=== PATIENT | female | born 1945 | race Caucasian/White ===

== ENCOUNTER 2020-03-21 14:00 | Inpatient (IN) | payer MEDICARE, OTHER ==
[2020-03-21 13:18] LABS: BASOPHILS % (AUTO) 0.4 % (0.0-5.0); EOSINOPHILS % (AUTO) 1.7 % (0.0-8.0); HEMATOCRIT 35.7 % (36-48); LYMPHOCYTES % (AUTO) 30.5 % (21.0-51.0); MEAN CORPUSCULAR HEMOGLOBIN 31.4 pg (27.0-33.0); MEAN CORPUSCULAR HGB CONC 31.9 g/dL (32.0-36.0); MEAN CORPUSCULAR VOLUME 98.3 fL (79-99); MONOCYTES % (AUTO) 7.6 % (3.0-13.0); NEUTROPHILS % (AUTO) 59.4 % (40.0-77.0); PLATELET COUNT (AUTO) 235 K/uL (130-400); RED BLOOD CELL COUNT(AUTO) 3.63 MIL/uL (4.00-5.50); RED CELL DISTRIBUTION WIDTH 11.8 % (11.0-15.5); WHITE BLOOD COUNT (AUTO) 5.2 K/uL (4.8-10.8)
[2020-03-21 13:26] LABS: CREATININE 1.1 mg/dL (0.5-1.5); POTASSIUM 4.3 mmol/L (3.5-5.1)
[2020-03-21 14:04] LABS: INR 0.91 (0.85-1.15); PROTHROMBIN TIME 9.8 SEC (9.6-11.6)
[2020-03-21 14:05] LABS: PARTIAL THROMBOPLASTIN TIME 24.1 SEC (26.3-35.5)
[2020-03-25 12:02] VITALS: BP_SYST 157; BP_SYST 184; BP_DIAS 69; BP_DIAS 76
[2020-03-25] MEDS: CEFAZOLIN SODIUM 1 GM VIAL IVP SCH (12:30)
[2020-03-25] MEDS ORDERED: CYAN250010 PO (12:52)
[2020-03-25] MEDS ORDERED: DORZ10DR19 OD (12:52)
[2020-03-25] MEDS ORDERED: DICL35CA3 PO (12:52)
[2020-03-25] MEDS ORDERED: OLME40TA8 PO (12:52)
[2020-03-25] MEDS ORDERED: PRAV20TA4 PO (12:52)
[2020-03-25] MEDS ORDERED: BRIM5DRO OD (12:52)
[2020-03-25] MEDS ORDERED: DILT120T PO (12:52)
[2020-03-25] MEDS ORDERED: DULO30CA2 PO (12:52)
[2020-03-25] MEDS ORDERED: OMEP20CA12 PO (12:52)
[2020-03-25] MEDS ORDERED: ANAS1TAB49 PO (12:52)
[2020-03-25] MEDS ORDERED: BACL5TAB PO (12:52)
[2020-03-25] MEDS ORDERED: AEC81 PO (12:52)
[2020-03-25] MEDS ORDERED: VITAD50000 PO (12:52)
[2020-03-26] VITALS (23 sets, daily range): BP systolic 114–129; BP diastolic 46–71
[2020-03-26] MEDS ORDERED: LACTATED RINGERS 1000ML 1,000 ML IV ONE (09:09)
[2020-03-26] MEDS ORDERED: VANCOMYCIN HCL 1 GM VIAL ONE (10:09)
[2020-03-26] MEDS ORDERED: CEFAZOLIN SODIUM 1 GM VIAL ONE (10:09)
[2020-03-26] MEDS ORDERED: BUPIVACAINE/PF 0.25% 10ML VIAL IJ ONE (10:09)
[2020-03-26] MEDS ORDERED: DEXAMETHASONE SOD PHOSPHATE 10MG/ML 1ML VIAL ONE ×2 (10:27→11:56)
[2020-03-26] MEDS ORDERED: SUCCINYLCHOLINE 200MG/10ML SYR ONE (10:27)
[2020-03-26] MEDS ORDERED: LIDOCAINE PF 2% 5ML ABBOJECT ONE (10:27)
[2020-03-26] MEDS ORDERED: NEOSTIGMINE 5MG/5ML SYR IV ONE (10:28)
[2020-03-26] MEDS ORDERED: PROPOFOL 10 MG/ML 20ML VIAL IV ONE (10:28)
[2020-03-26] MEDS ORDERED: GLYCOPYRROLATE 1 MG/5 ML SYRINGE ONE (10:28)
[2020-03-26] MEDS ORDERED: FENTANYL CITRATE PF 50 MCG/1 ML 2ML VIAL ONE (10:28)
[2020-03-26] MEDS ORDERED: ROCURONIUM 10MG/1ML SYR 10 MG/ML ML ONE (10:28)
[2020-03-26] MEDS ORDERED: MIDAZOLAM HCL 1 MG/ML 2ML VIAL ONE (10:28)
[2020-03-26] MEDS: CEFAZOLIN SODIUM 1 GM VIAL IVP SCH ×3 (10:45→18:03)
[2020-03-26] MEDS ORDERED: TRANEXAMIC ACID 1000MG/10ML ONE (10:51)
[2020-03-26] MEDS ORDERED: EPHEDRINE SULFATE 50 MG/ML AMPULE ONE (10:54)
[2020-03-26] MEDS ORDERED: TOBRAMYCIN SULFATE 40MG/1ML VIAL ONE (11:02)
[2020-03-26] MEDS ORDERED: THROMBIN-JMI 20000 UNIT KIT TP ONE (11:03)
[2020-03-26] MEDS ORDERED: MEPERIDINE-PF 25 MG/ML SYG ONE ×2 (13:16→13:49)
[2020-03-26] MEDS: SODIUM CHLORIDE 0.9% 1000ML 1,000 ML IV SCH (15:30)
[2020-03-26] MEDS ORDERED: CEFAZOLIN SODIUM 1 GM VIAL IVP SCH (15:30)
[2020-03-26] MEDS ORDERED: ACETAMINOPHEN-CODEINE 300/30MG TAB PO PRN ×2 (15:30)
[2020-03-26] MEDS ORDERED: MEPERIDINE-PF 75 MG/ML SYG IM PRN (15:30)
[2020-03-26] MEDS ORDERED: NALOXONE HCL 0.4 MG/1 ML ML IVP PRN (15:30)
[2020-03-26] MEDS: ASPIRIN 81 MG EC TAB PO SCH (20:24)
[2020-03-26] MEDS: DULOXETINE HCL 30 MG CAP PO SCH (20:24)
[2020-03-26] MEDS: BACLOFEN 10 MG TABLET PO SCH (20:24)
[2020-03-26] MEDS: SIMVASTATIN 10 MG TABLET PO SCH (20:24)
[2020-03-26] MEDS: ANASTROZOLE 1MG PO SCH (20:53)
[2020-03-26] MEDS: DORZOLAMIDE HCL 2% 10ML DROPS OD SCH (20:53)
[2020-03-26] MEDS: (Brimonidine Tartrate/Timolol (Combigan Eye Drops) 1 DROP) OD SCH (20:53)
[2020-03-26] MEDS: DICLOFENAC 50 MG PO SCH (20:54)
[2020-03-26] MEDS ORDERED: NON-FORMULARY MEDICATION 1 EACH (Diltiazem HCl 120 MG) PO SCH (21:00)
[2020-03-26] MEDS ORDERED: [UNRECOGNIZED DRUG - OTHER] OD SCH (21:00)
[2020-03-26] MEDS ORDERED: BRIMONIDINE TARTRATE OD SCH (21:00)
[2020-03-26] MEDS ORDERED: DORZOLAMIDE HCL OD SCH (21:00)
[2020-03-26] MEDS ORDERED: [UNRECOGNIZED DRUG - OTHER] PO SCH (21:00)
[2020-03-26] MEDS ORDERED: TIMOLOL OD SCH (21:00)
[2020-03-26] MEDS ORDERED: ANASTROZOLE 1 MG PO SCH (21:00)
[2020-03-26] MEDS ORDERED: NON-FORMULARY MEDICATION 1 EACH (Pravastatin Sodium 20 MG) PO SCH (21:00)
[2020-03-26] MEDS ORDERED: NON-FORMULARY MEDICATION 1 EACH (Baclofen 5 MG) PO SCH (21:00)
[2020-03-27] MEDS: CEFAZOLIN SODIUM 1 GM VIAL IVP SCH ×3 (03:08→19:47)
[2020-03-27 04:00] VITALS: BP 126/69
[2020-03-27 08:00] VITALS: BP 136/70
[2020-03-27] MEDS: (Brimonidine Tartrate/Timolol (Combigan Eye Drops) 1 DROP) OD SCH ×2 (08:48→21:51)
[2020-03-27] MEDS: OLMESARTAN 40MG PO SCH (08:48)
[2020-03-27] MEDS: DILTIAZEM HCL 120 MG CAP.SR.24H PO SCH (08:48)
[2020-03-27] MEDS: DORZOLAMIDE HCL 2% 10ML DROPS OD SCH ×2 (08:48→21:00)
[2020-03-27] MEDS: CYANOCOBALAMIN (VITAMIN B-12) 1,000 MCG TABLET PO SCH (08:49)
[2020-03-27] MEDS: PANTOPRAZOLE SODIUM 40 MG TABLET.DR PO SCH (08:49)
[2020-03-27] MEDS: CHOLECALCIFEROL 2000 UNIT PO SCH (08:51)
[2020-03-27] MEDS: DICLOFENAC 50 MG PO SCH ×3 (08:51→21:51)
[2020-03-27] MEDS ORDERED: OLMESARTAN MEDOXOMIL 40 MG PO SCH (09:00)
[2020-03-27] MEDS ORDERED: NON-FORMULARY MEDICATION 1 EACH (Cyanocobalamin (Vitamin B-12) (Vitamin B12) 2,500 MCG) PO SCH (09:00)
[2020-03-27] MEDS ORDERED: CHOLECALCIFEROL 2000 UNIT PO SCH (09:00)
[2020-03-27] MEDS ORDERED: NON-FORMULARY MEDICATION 1 EACH (Omeprazole 20 MG) PO SCH (09:00)
[2020-03-27 11:53] VITALS: BP 137/76
[2020-03-27] MEDS: SODIUM CHLORIDE 0.9% 1000ML 1,000 ML IV SCH (14:46)
[2020-03-27 16:00] VITALS: BP 128/48
[2020-03-27 19:30] VITALS: BP 140/56
[2020-03-27] MEDS: ASPIRIN 81 MG EC TAB PO SCH (21:47)
[2020-03-27] MEDS: SIMVASTATIN 10 MG TABLET PO SCH (21:47)
[2020-03-27] MEDS: DULOXETINE HCL 30 MG CAP PO SCH (21:48)
[2020-03-27] MEDS: BACLOFEN 10 MG TABLET PO SCH (21:51)
[2020-03-27] MEDS: ANASTROZOLE 1MG PO SCH (21:51)
[2020-03-27 23:16] VITALS: BP 136/58
[2020-03-28] MEDS: CEFAZOLIN SODIUM 1 GM VIAL IVP SCH ×3 (02:47→18:59)
[2020-03-28 04:00] VITALS: BP 121/54
[2020-03-28 08:00] VITALS: BP 137/74
[2020-03-28] MEDS: CHOLECALCIFEROL 2000 UNIT PO SCH (09:00)
[2020-03-28] MEDS: OLMESARTAN 40MG PO SCH (09:00)
[2020-03-28] MEDS: DORZOLAMIDE HCL 2% 10ML DROPS OD SCH ×2 (09:00→20:31)
[2020-03-28] MEDS: CYANOCOBALAMIN (VITAMIN B-12) 1,000 MCG TABLET PO SCH (09:00)
[2020-03-28] MEDS: DICLOFENAC 50 MG PO SCH ×3 (09:00→20:31)
[2020-03-28] MEDS: (Brimonidine Tartrate/Timolol (Combigan Eye Drops) 1 DROP) OD SCH ×2 (09:00→20:31)
[2020-03-28] MEDS: PANTOPRAZOLE SODIUM 40 MG TABLET.DR PO SCH (09:00)
[2020-03-28] MEDS: DILTIAZEM HCL 120 MG CAP.SR.24H PO SCH (09:00)
[2020-03-28 12:00] VITALS: BP 146/72
[2020-03-28 16:00] VITALS: BP 123/65
[2020-03-28] MEDS: SODIUM CHLORIDE 0.9% 1000ML 1,000 ML IV SCH ×2 (16:56→20:29)
[2020-03-28 19:50] VITALS: BP 123/98
[2020-03-28] MEDS: DULOXETINE HCL 30 MG CAP PO SCH (20:24)
[2020-03-28] MEDS: SIMVASTATIN 10 MG TABLET PO SCH (20:24)
[2020-03-28] MEDS: BACLOFEN 10 MG TABLET PO SCH (20:24)
[2020-03-28] MEDS: ASPIRIN 81 MG EC TAB PO SCH (20:24)
[2020-03-28] MEDS: ANASTROZOLE 1MG PO SCH (20:31)
[2020-03-28 23:52] VITALS: BP 136/67
[2020-03-29] MEDS: CEFAZOLIN SODIUM 1 GM VIAL IVP SCH ×2 (03:58→11:44)
[2020-03-29 04:24] VITALS: BP 145/75
[2020-03-29 08:00] VITALS: BP 141/68
[2020-03-29] MEDS: DICLOFENAC 50 MG PO SCH ×2 (08:31→14:00)
[2020-03-29] MEDS: (Brimonidine Tartrate/Timolol (Combigan Eye Drops) 1 DROP) OD SCH (08:31)
[2020-03-29] MEDS: CHOLECALCIFEROL 2000 UNIT PO SCH (08:31)
[2020-03-29] MEDS: PANTOPRAZOLE SODIUM 40 MG TABLET.DR PO SCH (08:31)
[2020-03-29] MEDS: DORZOLAMIDE HCL 2% 10ML DROPS OD SCH (08:31)
[2020-03-29] MEDS: CYANOCOBALAMIN (VITAMIN B-12) 1,000 MCG TABLET PO SCH (08:31)
[2020-03-29] MEDS: DILTIAZEM HCL 120 MG CAP.SR.24H PO SCH (08:31)
[2020-03-29] MEDS: OLMESARTAN 40MG PO SCH (08:32)
[2020-03-29 12:00] VITALS: BP 141/69
== END 2020-03-29 18:00 | disposition home health service (06) | DRG 460 ==
LOC: EDSTATUS 14:00 → DAHIP 03-26 08:15 → OBSVTOIN 03-26 08:15 → 3BH 03-26 14:29
PROVIDERS: ADMIT Neurological Surgery; ATTEND Neurological Surgery
PROC: 0SG1071 Fusion of 2 or more Lumbar Vertebral Joints with Autologous Tissue Substitute, Posterior Approach, Posterior Column, Open Approach (ICD-10-PCS; principal; 2020-03-26 10:27)
DX: M48.062 Spinal stenosis, lumbar region with neurogenic claudication (principal); Z20.828 Contact with and (suspected) exposure to other viral communicable diseases; G47.33 Obstructive sleep apnea (adult) (pediatric); M48.07 Spinal stenosis, lumbosacral region; Z83.3 Family history of diabetes mellitus; I25.2 Old myocardial infarction; M47.26 Other spondylosis with radiculopathy, lumbar region; M47.27 Other spondylosis with radiculopathy, lumbosacral region
CPT/HCPCS: 36415; 71045; 72100; 80048; 85025; 85610; 85730; 93005; G0378; J0330; J0690; J1030; J1100; J2001; J2175; J2250; J2704; J2710; J3010; J3260; J3370; J3490; J7030; J7120; U0003